=== PATIENT | female | born 1970 | race Caucasian/White ===

== ENCOUNTER 2024-05-09 08:57 | Emergency (ER) | payer BC, SELFPAY ==
[2024-05-09] VITALS (8 sets, daily range): BP systolic 123–160; BP diastolic 61–89; PULSE 86–124; RESP 13–20; TEMP 36.8–38.7; O2SAT 92–99; BMI 29.2
[2024-05-09 09:05] LABS: Coronavirus 19, PCR Not Detected (NotDetected); Influenza B, PCR Not Detected (NotDetected)
--- NOTE | 2024-05-09 09:10 | XR_ITS ---
FINAL REPORT CLINICAL HISTORY: chest pain/cough COMPARISON: None FINDINGS: There is a vague opacity along the right heart border suspicious for pneumonia. The left lung is clear. There is no evidence of effusion or other pleural disease. The mediastinum has a normal appearance. The cardiac silhouette is unremarkable. IMPRESSION: Right middle lobe pneumonia. Reviewed, Interpreted and Dictated by Nu Garvey MD Transcribed by Maddison Little Authenticated and . [facility]
[2024-05-09 09:19] LABS: Basophils # 0.1 K/mm3 (0-0.2); Basophils % 1.3 % (0.1-2.0); Eosinophils # 0.1 K/mm3 (0.0-0.4); Eosinophils % 1.9 % (0.1-12.0); Hematocrit 40.7 % (37.0-47.0); Hemoglobin 13.3 g/dL (12.2-16.2); Lymphocytes # 0.2 K/mm3 (0.7-4.5); Mean Corpuscular HGB Conc 32.6 g/dL (31.8-35.4); Mean Corpuscular Hemoglobin 29.4 pg (27.0-31.2); Mean Corpuscular Volume 90.4 fl (81-99); Mean Platelet Volume 7.6 fl (7.4-10.4); Monocytes # 0.3 K/mm3 (0.1-1.0); Monocytes % 6.7 % (1.7-9.3); Neutrophils # 3.5 K/mm3 (1.8-7.8); Neutrophils % 85.9 % (37.0-80.0); Platelet Count 198 K/mm3 (142-424); Red Cell Distribution Width 13.1 % (11.5-17.5); White Blood Count 4.1 K/mm3 (4.8-10.8)
[2024-05-09 09:21] LABS: MANUAL DIFFERENTIAL MANUAL DIFFERENTIAL (MANUAL DIFF)
[2024-05-09] MEDS: ONDANSETRON 4MG/2ML VIAL 4 MG IV (09:24)
[2024-05-09] MEDS: 0.9 % SODIUM CHLORIDE 1000ML 1,000 ML 999 ML IV (09:24)
[2024-05-09] MEDS: IBUPROFEN 400 MG TABLET 800 MG PO (09:25)
[2024-05-09] MEDS: ACETAMINOPHEN 1,000MG/100ML VIAL 1000 MG IV (09:25)
[2024-05-09 09:28] LABS: Albumin Level 4.5 g/dl (3.5-5.0); Chloride 103 mmol/L (98-107); Potassium 4.1 mmoL/L (3.5-5.1); Sodium 134 mmol/L (136-145)
[2024-05-09 09:31] LABS: Alanine Aminotransferase 58 U/L (12-78); Albumin/Globulin Ratio 1.6 (1.1-1.8); Alkaline Phosphatase 97 U/L (38-126); Anion Gap 9.1 mEq/L (5-15); Aspartate Amino Transferase 48 U/L (14-36); Bilirubin,Total 0.4 mg/dl (0.2-1.3); Blood Urea Nitrogen 11 mg/dl (7-17); Calcium 9.4 mg/dl (8.4-10.2); Carbon Dioxide 26 mmol/L (22.0-30.0); Creatinine Clearance Estimated 114 mL/min (50-200); Estimated Glomerular Filt Rate 88 ml/min (>60); GFR (African American) 106 ML/MIN (>60); Globulin 2.9 g/dL (1.3-3.2); Glucose 99 mg/dl (74-100); Total Protein,Serum 7.4 g/dl (6.3-8.2)
--- NOTE | 2024-05-09 09:34 | ED_ITS ---
Discharge Plan Disposition Patient Disposition: Home, Self-Care Condition: Good Prescriptions Prescriptions: New ondansetron 4 mg tablet,disintegrating 4 mg PO Q8H PRN (Reason: nausea and vomiting) 4 Days Qty: 12 0RF ztoqwarbmmdiqxh-pwubbtzmo-DC [Bromfed DM] 2-30-10 mg/5 mL syrup 5 ml PO Q6H PRN (Reason: cold symptoms) Qty: 118 0RF fluticasone propionate [Flonase Allergy Relief] 50 mcg/actuation spray,suspension 1 spray intranasal DAILY Qty: 16 0RF Rx Instructions: administer into each nostril Referrals Follow up/Referrals: Patti Hsu MD [Primary Care Provider] - See instructions Activity Restrictions/Add. Instructions Additional Instructions/Restrictions: You were evaluated in the emergency department today. 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 Take Tylenol and ibuprofen every 4-6 hours at home as needed for pain/fever. You may also take rfba-sac-ybwjnow medications, such as DayQuil or NyQuil, but make sure that you are not exceeding 3 g of acetaminophen/Tylenol in a 24-hour period. Make sure you stay hydrated. Expect that your symptoms may last several days and cough may linger several weeks. Return to the emergency department for new or worsening symptoms. Follow-up closely with your primary care provider. Clinical Impressions Clinical Impression: Influenza A Instructions Patient Instructions: DI for Viral Syndrome Print Language Print Language: Upper Sorbian Discharge ED Provider: Monse Rai HPI General Chief Complaint: Shortness of Breath/Dyspnea Stated Complaint: soa Time Seen by Provider: 05/09/24 08:57 Mode of Arrival: Ambulatory Source of Information: Patient Limitations: No Limitations Description of Symptoms (Recalled from ER Triage Doc. by RN): tejaugh JARRET History of Present Illness HPI narrative: This patient is a 53-year-old female who has history of MS presenting to the emergency department for evaluation with concern for fevers, cough, shortness of breath, chest pain, and nausea. Patient states that she started feeling bad yesterday but got acutely worse today. Chest pain started after all the coughing. She was awaiting evaluation at [facility] when she became more short of breath, prompting her to come to the ED for evaluation. She denies any history of cardiopulmonary issues and denies any other concerns or complaints. She took NyQuil last night with some relief. Related Data Previous Rx's ?Medication ?Instructions ?Recorded jbosdxjurdurasa-hkbdxmdcduhyqcz-PR 5 ml PO Q6H PRN cold symptoms #118 05/09/24 2 mg-30 mg-10 mg/5 mL oral syrup mL (Bromfed DM) fluticasone propionate 50 1 spray intranasal DAILY #16 grams 05/09/24 mcg/actuation nasal spray,suspension (Flonase Allergy Relief) ondansetron 4 mg disintegrating 4 mg PO Q8H PRN nausea and 05/09/24 tablet vomiting 4 days #12 tabs Allergies Allergy/AdvReac Type Severity Reaction Status Date / Time Opioid Allergy Unknown Uncoded 05/11/17 14:54 [facility] Disclaimer: The information contained in this section may have been updated after the patient was seen, as this information can be updated by other users. Social History Smoking Status: Never smoker alcohol intake: never current occupational status: employed Travel in the last 8 weeks: None ROS Obtained: Yes All systems reviewed & no additional complaints except as documented Physical Exam General General appearance: alert, in no apparent distress and obese Head Head exam: atraumatic and normocephalic Eye Eye exam: Present normal appearance, PERRL and EOMI ENT ENT exam: Present normal exam, normal oropharynx, mucous membranes moist and normal external ear exam Neck Neck exam: Present normal inspection, full ROM and trachea midline; Absent tenderness Chest Chest inspection: Present normal inspection and symmetric chest wall rise; Absent tenderness Respiratory Respiratory exam: Present normal lung sounds bilaterally and other (Dry, hacking cough. Mild tachypnea); Absent respiratory distress, wheezes, stridor or accessory muscle use Cardiovascular Cardiovascular exam: Present normal rhythm and tachycardia Abdominal Exam Abdominal exam: Present soft; Absent distention, tenderness or guarding Extremities Exam Extremities exam: Present normal inspection, full ROM and normal capillary refill; Absent tenderness or edema Back Exam Back exam: Present normal inspection and full ROM; Absent tenderness Neurological Exam Neurological exam: Present alert, oriented X3, CN II-XII intact and normal gait; Absent motor sensory deficit Psychiatric Psychiatric exam: Present normal affect and normal mood Skin Skin exam: Present warm and dry HEART Score HEART Score HEART Score assessment performed?: Yes History (anamnesis): Slightly suspicious ECG: Normal Age: 45-65 years Risk factors: No known risk factors Troponin: </= normal limit HEART Score: 1 Critical Care Critical Care Time Critical Care Time: No Medical Decision Making Liborio Inquiry Pt receiving controlled substance: No Vital Signs Vital Signs: 05/09/24 08:58 05/09/24 09:00 05/09/24 09:01 Temperature 101.6 F H Temperature Source Oral Pulse Rate 124 H 110 H Pulse Rate [Right Radial] 114 H Respiratory Rate 20 Blood Pressure 142/89 H Blood Pressure [Right Arm] 160/86 H Blood Pressure Mean [Right Arm] 110 Blood Pressure Source Blood Pressure Position 02 Sat by Pulse Oximetry 94 L 92 L 92 L Oxygen Delivery Method Room Air 05/09/24 09:15 05/09/24 09:30 05/09/24 10:01 Temperature Temperature Source Pulse Rate 114 H 115 H Pulse Rate [Right Radial] Respiratory Rate 13 15 14 Blood Pressure 133/67 127/69 Blood Pressure [Right Arm] Blood Pressure Mean [Right Arm] Blood Pressure Source Blood Pressure Position 02 Sat by Pulse Oximetry 93 L 94 L Oxygen Delivery Method Room Air 05/09/24 10:56 05/09/24 11:33 Temperature 98.3 F 98.3 F Temperature Source Oral Pulse Rate 112 H 86 Pulse Rate [Right Radial] Respiratory Rate 18 18 Blood Pressure 123/61 129/67 Blood Pressure [Right Arm] Blood Pressure Mean [Right Arm] Blood Pressure Source Automatic Cuff Blood Pressure Position Sitting 02 Sat by Pulse Oximetry 95 Oxygen Delivery Method Room Air Room Air Lab Data Labs: Lab Results 05/09/24 09:02: SARS-CoV-2 (PCR) Not detected, Influenza A Untype (PCR) Detected A, Influenza Type B (PCR) Not detected 05/09/24 09:09: WBC 4.1 L, RBC 4.50, Hgb 13.3, Hct 40.7, MCV 90.4, MCH 29.4, MCHC 32.6, RDW 13.1, Plt Count 198, MPV 7.6, Neut % (Auto) 85.9 H, Lymph % (Auto) 4.0 L, Stark % (Auto) 6.7, Eos % (Auto) 1.9, Baso % (Auto) 1.3, Neut # (Auto) 3.5, Lymph # (Auto) 0.2 L, Stark # (Auto) 0.3, Eos # (Auto) 0.1, Baso # (Auto) 0.1, Total Counted 100, Neutrophils % (Manual) 91 H, Lymphocytes % (Manual) 3 L, Monocytes % (Manual) 5, Eosinophils % (Manual) 1, Platelet Estimate Normal, RBC Morphology Normal, D-Dimer 1.04 H, Sodium 134 L, Potassium 4.1, Chloride 103, Carbon Dioxide 26, Anion Gap 9.1, BUN 11, Creatinine 0.70, Estimated Creat Clear 114, Estimated GFR 88, Est GFR ( Amer) 106, Glucose 99, Calcium 9.4, Total Bilirubin 0.4, AST 48 H, ALT 58, Alkaline Phosphatase 97, Troponin I < 0.01, Total Protein 7.4, Albumin 4.5, Globulin 2.9, Albumin/Globulin Ratio 1.6, Procalcitonin 0.130, HIV Ag/Ab Combo Qual Negative 05/09/24 09:09 05/09/24 09:09 Response Orders (Tests/Meds): ED MEDICATIONS Discontinued Medications Generic Name Dose Route Start Last Admin Trade Name Toluq PRN Reason Stop Dose Admin Acetaminophen 1,000 mg 05/09/24 09:11 05/09/24 09:25 Acetaminophen 1,000mg/100ml Vial IV 05/09/24 09:12 1,000 mg ONCE ONE Administration Sodium Chloride 1,000 mls @ 999 mls/hr 05/09/24 09:11 05/09/24 09:24 Sod Chlor 0.9% 1000ml Bag IV 05/09/24 10:11 999 mls/hr .Q1H1M ONE Administration Ibuprofen 800 mg 05/09/24 09:23 05/09/24 09:25 Ibuprofen 400 Mg Tablet PO 05/09/24 09:24 800 mg ONCE ONE Administration Iopamidol 85 ml 05/09/24 10:20 05/09/24 10:22 Iopamidol-370 (76%);100ml Bottle IV 05/09/24 10:21 85 ml ONCE ONE Administration Ketorolac Tromethamine 15 mg 05/09/24 09:11 05/09/24 09:24 Ketorolac 30mg/Ml Vial IV 05/09/24 09:12 Not Given ONCE ONE Ondansetron HCl 4 mg 05/09/24 09:11 05/09/24 09:24 Ondansetron 4mg/2ml Vial IV 05/09/24 09:12 4 mg ONCE ONE Administration Sodium Chloride 40 ml 05/09/24 10:20 05/09/24 10:21 0.9 % Sodium Chloride 50 Ml Vial IV 05/09/24 10:21 40 ml ONCE ONE Administration Sodium Chloride 10 ml 05/09/24 10:20 05/09/24 10:22 Sodium Chloride 0.9% 10ml Syr (Rad Only) IV 05/09/24 10:21 10 ml ONCE ONE Administration ORDERS Category Date Time Status CT angio chest PE protocol Stat Cat Scan 05/09/24 09:59 Completed CXR 2 view (NOT portable) [XR chest 2V] Stat Exams 05/09/24 09:10 Completed Complete Blood Count Auto Diff Stat Lab 05/09/24 09:09 Completed Comprehensive Metabolic Panel Stat Lab 05/09/24 09:09 Completed D-Dimer Stat Lab 05/09/24 09:09 Completed HIV Combo Stat Lab 05/09/24 09:09 Completed Hep C Ab with Reflex to RNA Stat Lab 05/09/24 09:09 Received Procalcitonin Stat Lab 05/09/24 09:09 Completed Rapid PCR Covid and Flu A/B Stat Lab 05/09/24 09:02 Completed Trop I [Troponin I] Stat Lab 05/09/24 09:09 Completed ECG Data Tracing #1: Attestation: I reviewed this ECG and interpreted as documented below: ECG Narrative: Sinus tachycardia with a ventricular rate of [address] changes concerning for ischemia. Normal axis and intervals. ECG initial impression date: 05/09/24 ECG initial impression time: 09:02 MDM Narrative Medical Decision Narrative: In summary, this patient is a 53-year-old female presenting to the Emergency Department for evaluation of fever, cough, congestion, shortness of breath, chest pain, and nausea. Differential diagnoses considered include but are not limited to syndrome, pneumonia, respiratory failure, ACS, PE, pericarditis, myocarditis. Ruling out the most morbid conditions drove assessment. It should be noted patient's history includes obesity and MS which are not at goal therapy. This complicates all aspects of care by increasing patient's risk for morbidity. On exam, the patient is lying in bed in no acute distress. She is tachycardic, febrile, mildly tachypneic. She has dry hacking cough. Workup included CBC, CMP, troponin, D-dimer, procalcitonin, lactic acid, viral swab, chest x-ray, EKG. EKG obtained is reassuring with no significant ST changes. Patient was given Tylenol, ibuprofen, Zofran and a bolus of IV fluids for symptomatic improvement. I independently interpreted chest x-ray prior to the radiologist read and noted no large focal pneumonia. Please see their read for final interpretation. Labs were obtained that demonstrated mildly elevated D-dimer. Negative troponin. She is positive for flu A. Workup otherwise reassuring On reassessment, patient had good improvement after administration of interventions above. CT PE ordered given elevated D-dimer negative for any blood clots or large focal pneumonia. I feel she likely has viral syndrome causing all of her symptoms. After shared decision-making, patient elects to not receive Tamiflu for treatment. At this time after reassuring workup and exam and reassuring vitals on cardiac telemetry, I feel that she is appropriate for discharge home with instructions for supportive management of viral upper respiratory infection/flu. She is given prescription for Zofran, instructions for close outpatient follow-up, and strict return precautions. She was discharged after all questions were answered.
[2024-05-09 09:36] LABS: D-Dimer 1.04 ug/mL (0.0-0.5)
[2024-05-09 09:37] LABS: Eosinophils % 1 % (0-3); Lymphocytes % 3 % (10-50); Monocytes % 5 % (2-9); Neutrophils % 91 % (42-76); Platelet Estimate Normal; RBC Morphology Normal; Total Cells Counted 100
[2024-05-09 09:48] LABS: Troponin I < 0.01 ng/ml (0.00-0.034)
--- NOTE | 2024-05-09 09:59 | CT_ITS ---
FINAL REPORT TECHNIQUE: Thin section axial CT with contrast with multiplanar reconstruction This study was performed with techniques to keep radiation doses as low as reasonably achievable, (ALARA). Individualized dose reduction techniques using automated exposure control or adjustment of mA and/or kV according to the patient's size were employed. CLINICAL HISTORY: chest pain, cough, elevated dimer COMPARISON: None FINDINGS: CTA CHEST: Pulmonary vessels enhance in normal fashion without evidence of embolism. Thoracic aorta shows no dissection or aneurysm. There are coarse linear densities in the left lower lobe, atelectasis versus scar. There is mild atelectasis versus scar in the right middle lobe as well. There is no evidence of pneumonia. There is no significant pleural effusion. There is no significant pericardial effusion. No mediastinal or hilar adenopathy is present. There is a fluid-filled and significantly distended thoracic esophagus, a finding which may be secondary to severe reflux, a distal stricture, or achalasia. IMPRESSION: No evidence of pulmonary embolism Fluid-filled and significantly distended thoracic esophagus, a finding which may be seen with severe reflux, distal stricture, or achalasia. Recommend esophagram or EGD for further evaluation. Reviewed, Interpreted and Dictated by Nu Garvey MD Transcribed by Ronda Dominguez Authenticated and [facility]
--- NOTE | 2024-05-09 10:10 | PC.NURSE ---
PT TO CT
--- NOTE | 2024-05-09 10:11 | PC.NURSE ---
pt going for ct scan via wheelchair
[2024-05-09 10:16] LABS: Influenza A, PCR Detected (NotDetected)
[2024-05-09] MEDS: 0.9 % SODIUM CHLORIDE 50 ML VIAL 40 ML IV (10:21)
[2024-05-09] MEDS: IOPAMIDOL-370 (76%);100ML BOTTLE 85 ML IV (10:22)
[2024-05-09] MEDS: SODIUM CHLORIDE 0.9% 10ML SYR (RAD ONLY) 10 ML IV (10:22)
--- NOTE | 2024-05-09 11:04 | PC.NURSE ---
DR CASTELLANOS AT BEDSIDE TO UPDATE PT AND FAMILY
[2024-05-09 11:44] LABS: HIV Combo NEGATIVE (Negative)
[2024-05-10 06:22] LABS: HCV Ab Non Reactive (Non Reactive)
== END 2024-05-09 11:42 | disposition home or self-care (01) ==
PROVIDERS: Emergency Provider Emergency Medicine; PCP Family Medicine
DX: J10.1 Influenza due to other identified influenza virus with other respiratory manifestations (principal); R50.9 Fever, unspecified; R05.9 Cough, unspecified; R06.02 Shortness of breath; R07.9 Chest pain, unspecified; R11.0 Nausea; R09.81 Nasal congestion
CPT/HCPCS: 71046; 71275; 80053; 84145; 84484; 85007; 85025; 85027; 85378; 86803; 87389; 87636; 93005; 96361; 96374; 96375; 99285; J0131; J2405; J7030; Q9967